=== PATIENT | female | born 1950 | race Caucasian/White ===

== ENCOUNTER 2018-02-06 11:10 | Day surgery (SDC) | payer OTHER ==
[2018-02-06 11:36] VITALS: TEMP 99.5
[2018-02-06] MEDS ORDERED: LIDOCAINE HCL 2% LUER-JET ONE (11:40)
[2018-02-06] MEDS ORDERED: VERSED ONE (11:40)
[2018-02-06] MEDS ORDERED: DIPRIVAN 20 ML VIAL IVP ONE (11:40)
[2018-02-06 12:36] VITALS: BP 138/74
--- NOTE | 2018-02-07 13:12 | OP ---
INDICATIONS FOR PROCEDURE: 68-year-old female presents for screening colonoscopy exam. She also presents for endoscopy evaluation of dysphagia to solid foods. MEDICATIONS: SEE ANESTHESIA NOTES. PROCEDURE: 1. ENDOSCOPY, ESOPHAGEAL BIOPSY, MOZAMBICAN DILATATION. 2. COLONOSCOPY. REPORT: The risks, benefits, alternatives and limitations were discussed in detail with the patient. Informed consent was obtained. After adequate sedation was achieved, the video endoscope was introduced in the posterior pharynx and esophagus under direct vision and easily advanced down to the second portion of the duodenum. I then slowly withdrew. The duodenal mucosa appeared unremarkable as did the duodenal bulb. The antrum and body were relatively unremarkable. The scope was retroflexed to look at the cardia and fundus which was unremarkable. The scope was anteflexed and withdrawn back through the esophagus. There was a 2 cm sliding hiatal hernia. In the GE junction there is a Schatzki's ring. The ring and junction were biopsied for histologic review. The esophagus appeared unremarkable otherwise. I advanced the scope back down the gastric lumen. I placed a guidewire. Over the guidewire , I easily advanced a 54 [place] dilator. The patient tolerated the procedure well with stable vital signs and pulse oximetry throughout. The patient's bed was turned. A digital rectal exam revealed good tone, no masses. The colonoscope was introduced into the rectum, advanced under direct visual guidance to the cecum. The cecum was identified by the appendical orifice and the IC valve. I then slowly withdrew the scope in a circumferential manner examining the mucosa quite carefully. I looked on the proximal and distal side of folds and flexures as best as possible. I was able to retroflex the scope in the right colon as well as left colon to increase visualization. The colonic mucosa was unremarkable other than diverticulosis. There were small and large mouth diverticulitis scattered throughout the entire colon. The scope was retroflexed to look at the anal canal which was unremarkable. The prep was good. The withdrawal time was 10 minutes and 16 seconds. The patient tolerated the procedure well with stable vital signs and pulse oximetry throughout. IMPRESSION: 1. SMALL 2 CM HIATAL HERNIA 2. DISTAL ESOPHAGEAL SCHATZKI'S RING, DILATED ABOVE 3. COLONIC COSBY DIVERTICULOSIS RECOMMENDATIONS: 1. Reflux precautions. 2. Advised her to make sure she cuts and chews her food well. 3. Will wait esophageal biopsy results to confirm benign nature of this stricture. 4. High fiber diet. 5. Consider colon screening examination again in 10 years. CC: DR. ANA JARAMILLO
== END 2018-02-06 13:15 | disposition home or self-care (01) ==
LOC: SURG 11:10
PROVIDERS: ATTEND Internal Medicine Gastroenterology
DX: R13.10 Dysphagia, unspecified (principal); Z12.11 Encounter for screening for malignant neoplasm of colon; K22.2 Esophageal obstruction; K44.9 Diaphragmatic hernia without obstruction or gangrene
CPT/HCPCS: 00813; 43239; 43248; G0121

== ENCOUNTER 2022-10-05 11:17 | Observation (INO) ==
[2022-10-05 11:28] VITALS: BMI 25.9
[2022-10-05] MEDS ORDERED: ASPIRIN CHEWABLE PO STA (11:39)
[2022-10-05] MEDS ORDERED: NITRO-BID TD ONE (11:39)
[2022-10-05 11:49] LABS: BASOPHILS % (AUTO) 0.4 % (0.0-3.0); EOSINOPHILS # (AUTO) 0.1 K/ul (0.0-0.7); HEMATOCRIT 36.6 % (37.0-47.0); HEMOGLOBIN 12.4 g/dl (12.0-16.0); IMMATURE GRANULOCYTE % (AUTO) 0.2 % (0.0-5.0); LYMPHOCYTES # (AUTO) 2.2 K/uL (0.60-3.4); LYMPHOCYTES % (AUTO) 39.6 (10.0-50.0); MEAN CORPUSCULAR HEMOGLOBIN 30.8 pg (27.0-31.0); MEAN CORPUSCULAR HGB CONC 33.9 (31.8-35.4); MONOCYTES # (AUTO) 0.5 K/uL (0.4-2.0); NEUTROPHILS # (AUTO) 2.8 K/ul (2.0-6.9); NEUTROPHILS % (AUTO) 49.8 % (42.2-75.2); PLATELET COUNT 208 10^3/uL (140-440); RDW COEFFICIENT OF VARIATION 12.6 % (11.6-14.8); RED BLOOD COUNT 4.02 10^6/ul (4.20-5.40)
[2022-10-05 12:02] LABS: ALANINE AMINOTRANSFERASE 27.2 U/L (0-35); ALBUMIN 4.59 g/dL (3.5-5.0); ALKALINE PHOSPHATASE 74.2 U/L (53-141); ASPARTATE AMINO TRANSFERASE 30.9 U/L (14-36); BILIRUBIN,TOTAL 0.62 mg/dL (0.2-1.3); BLOOD UREA NITROGEN 16.7 mg/dL (7-17); CALCIUM 9.81 mg/dL (8.4-10.2); CARBON DIOXIDE 26.5 mmol/L (22-30.0); CREATININE 0.82 mg/dL (0.60-1.30); GLUCOSE 106.6 mg/dL (74-106); LIPASE 245.9 U/L (23-300); POTASSIUM 4.25 mmol/L (3.5-5.1); SODIUM 137.6 mmol/L (134.5-145); TOTAL PROTEIN 7.41 g/dL (6.3-8.2)
--- NOTE | 2022-10-05 12:02 | DI ---
EXAM: SINGLE VIEW OF THE CHEST HISTORY: Chest pain. COMPARISON: None FINDINGS: Cardiomediastinal silhouette is unchanged. There is no pneumothorax or effusion. There is no consolidation, nodule or mass. The osseous structures are unremarkable. IMPRESSION: No acute cardiopulmonary process
[2022-10-05 12:21] LABS: TROPONIN I < 0.012 ng/ml (0.0000-0.120)
--- NOTE | 2022-10-05 13:36 | ED.PDOC ---
General ED Provider: Dr. NISA FINLEY MD Chief Complaint: Chest Pain Stated Complaint: chest pressure Time Seen by Provider: 10/05/22 11:58 Mode of Arrival: Walk-In Information Source: Patient Exam Limitations: No limitations Primary Care Provider: NUVIA BUTLER MD Referred to ED by: PCP and Clinic Seen Within Last 72 Hours for Same Complaint By: Clinic and PCP Nursing and Triage Documentation Reviewed and Agree: Yes Does patient meet sepsis criteria?: No System Inflammatory Response Syndrome: Not Applicable Sepsis Protocol: For patient's 13 years and over: Temp is 96.8 and below OR 101 and greater Pulse >90 BPM Resp >20/minute Acutely Altered Mental Status Are patient's symptoms suggestive of a new infection, such as: -Pneumonia -Skin, Soft Tissue -Endocarditis -UTI -Bone, Joint Infection -Implantable Device -Acute Abdominal Infection -Wound Infection -Meningitis -Blood Stream Catheter Infection -Unknown Cardiovascular Complaint Exam Chest Pain Complaint/Exam Onset: Gradual Duration: two weeks (continuously) Symptoms Are: Still present Timing: Constant Initial Severity: Mild Current Severity: Mild Location: Reports Midsternal Pain Radiates: Reports None Character: Reports Pressure Aggravating: Reports None Alleviating: Reports None Associated Signs and Symptoms: Reports Diaphoresis; Denies Nausea, Vomiting, Fever, Palpitations, Cough, Hemoptysis, Back pain, Abdominal pain, Dizziness, Short of air, Calf pain or Calf swelling Related Surgical History: Reports PTCA/Stent History of Healthcare-Acquired Pneumonia: Reports No AMI/ACS Risk Factors: Reports Hypertension TAD Risk Factors: Reports Hypertension Pulmonary Embolism Risk Factors: Reports None Prior Care for this Complaint: No Recent Stress Test: No Recent Echo/LV Function: No JVD Present: No Subcutaneous Emphysema Present: No Diminshed Breath Sounds: No Reproducible Chest Wall Pain: No Bilateral Pulses Present: Yes Unequal Pulses Noted: No If Risk Factors for AMI/ACS Consider: EKG, Cardiac Enzymes and Aspirin Technology Lab Teacher Consulted: No Differential Diagnoses: ACS, Unstable Angina, Chest Wall Pain and GI Diseasae Quality Indicator For Non-Traumatic Chest Pain/Syncope: EKG Performed Quality Indicators For Pneumonia/CAP: SpO2 assessed, Vital signs and Mental status assessed Antibiotics Delayed Due To: Diagnostic uncertainty and Further testing required Review of Systems Review Of Systems Constitutional: Reports Diaphoresis and Weakness; Denies Chills, Fever or Malaise Eyes: Reports No symptoms Ears, Nose, Mouth, Throat: Reports No symptoms Respiratory: Reports No symptoms Cardiac: Reports Chest pain; Denies Irregular heart rate, Lightheadedness, Palpitations or Syncope GI: Reports No symptoms : Reports No symptoms Musculoskeletal: Reports No symptoms Skin: Reports No symptoms Neurological: Reports No symptoms Endocrine: Reports No symptoms Hematologic/Lymphatic: Reports No symptoms All Other Systems: Reviewed and Negative [facility] Medical History (Updated 10/05/22 @ 15:10 by NISA FINLEY MD) Acute arthritis M19.90 - Unspecified osteoarthritis, unspecified site (ICD-10) Hypercholesteremia E78.00 - Pure hypercholesterolemia, unspecified (ICD-10) Thyroid dysfunction E07.9 - Disorder of thyroid, unspecified (ICD-10) Family History Mother Diabetes Hyperlipidemia Hypertension FATHER Drug abuse Alcoholism Hypercholesteremia Hyperlipidemia Cerebrovascular accident Cancer Hypertension SISTER Hypercholesteremia Hyperlipidemia Thyroid disorder BROTHER Drug abuse Alcoholism Hypercholesteremia Hyperlipidemia Cerebrovascular accident Hypertension Grandfather/Grandmother Drug abuse Alcoholism Social History (Updated 10/05/22 @ 10:47 by NORM MORENO) Smoking and tobacco status: Never smoker Alcohol intake: never Substance use type: does not use Special wale needs: No Agree to transfusion: Yes Adopted: No Caregiver/support person: No Foster care: No Household members: none Housing: house Lives independently: Yes Daycare: no daycare Number of children: 1 service: No detention: No History of recent travel: No Do you think of yourself as: straight/heterosexual Current gender identity: female Seatbelt use: always Drives intoxicated or rides with intoxicated rolloff driver: No Water heater temperature set < 120 degrees: Yes Working smoke detector in home: Yes Fire extinguisher in home: Yes Carbon monoxide detector in home: Yes Surgical History (Updated 11/25/19 @ 08:50 by [email or web address]) Status post appendectomy Z90.49 - Acquired absence of other specified parts of digestive tract (ICD- 10) Female Reproductive History Menstrual Hx Hysterectomy: No Hx Tubal Ligation: No Physical Exam Physical Exam Appearance: Reports Well-appearing, No pain distress and Well-nourished Ill-appearing: None Pain Distress: None Eyes: Reports TORO, EOMI and Conjunctiva clear ENT: Reports Oropharynx normal Neck: Supple Respiratory: Reports Airway patent, Breath sounds clear, Breath sounds equal and Respirations nonlabored Cardiovascular: Reports RRR, Pulses normal and No murmur GI/: Reports Soft, Nontender and Bowel sounds normal Musculoskeletal: Reports Normal strength and No edema Skin: Reports Warm, Dry and Normal color Neurological: Reports Sensation intact, Motor intact, Alert and Oriented Psychiatric: Reports Affect appropriate Interpretation EKG Interpretation EKG Interpretation By: ED Physician Time of EKG #1: 11:44 Rate: Normal Rhythm: Sinus Ectopy: None [place]: NL ST Segment: Normal EKG Comparison: No significant changes Radiology Interpretation Radiology Interpretation By: Radiologist Radiology Results: Negative Exam Interpreted: CXR Physician Notification Case Discussed Physician Notified: called Dr. Heard - no return call Time of Notification: 13:00 Physician Notified: Dr. Butler Time of Notification: 14:30 Comments: Dr. Butler is willing to admit for observation and perform a nuclear stress test and echo on Monday. He would first like that we try to call cardiology in [place] one more time first. Endorsed To/Discussed With: Dr. Dominguez (cardiology in [place]) Time of Discussion: 14:50 Reviewed With: Dr. Dominguez thinks is reasonable to perform a stress test Monday by Dr. Butler Critical Care Note Critical Care Note Total Critical Care Time (mins): 0 Course Course 10/05/22 11:43 10/05/22 11:43 Orders, Labs, Meds: Lab Review 10/05/22 11:43 WBC 5.60 RBC 4.02 L Hgb 12.4 Hct 36.6 L MCV 91.0 MCH 30.8 MCHC 33.9 RDW Coeff of Byron 12.6 Plt Count 208 Immature Gran % (Auto) 0.2 Neut % (Auto) 49.8 Lymph % (Auto) 39.6 Hettinger % (Auto) 8.0 Eos % (Auto) 2.0 Baso % (Auto) 0.4 Neut # (Auto) 2.8 Lymph # (Auto) 2.2 Hettinger # (Auto) 0.5 Eos # (Auto) 0.1 Baso # (Auto) 0.0 Immature Gran # (Auto) 0.0 Sodium 137.6 Potassium 4.25 Chloride 106.0 Carbon Dioxide 26.5 Anion Gap 9.35 BUN 16.7 Creatinine 0.82 Estimated GFR (MDRD) 68.00 BUN/Creatinine Ratio 20.36 Glucose 106.6 H Calcium 9.81 Total Bilirubin 0.62 AST 30.9 ALT 27.2 Alkaline Phosphatase 74.2 Troponin I < 0.012 Total Protein 7.41 Albumin 4.59 Globulin 2.82 Albumin/Globulin Ratio 1.62 Lipase 245.9 Orders Category Date Time Status EKG-(ED ONLY) Stat CARDIO 10/05/22 11:39 Completed PULSE OX [CONTINUOUS PULSE OX (NURSING)] PULSEOX CARE 10/05/22 11:39 Active Environmental Research Scientist [ED COAT CUTTER APPLIED] .ONCE EMERGENCY 10/05/22 11:39 Active CBC W/ AUTO DIFF Stat LAB 10/05/22 11:43 Completed CMP [COMPREHENSIVE METABOLIC PANEL] Stat LAB 10/05/22 11:43 Completed LIPASE Stat LAB 10/05/22 11:43 Completed TROPONIN I Stat LAB 10/05/22 11:43 Completed Aspirin [Aspirin Chewable] Meds 10/05/22 11:39 Discontinued 324 mg PO ONCE STA Nitroglycerin [Nitro-Bid] Meds 10/05/22 11:39 Discontinued 1 inch TD ONCE ONE CXR [CHEST, 1V AP ONLY] Stat RADS 10/05/22 11:39 Completed Medications Discontinued Medications Generic Name Dose Route Start Last Admin Trade Name Freq PRN Reason Stop Dose Admin Aspirin 324 mg 10/05/22 11:39 10/05/22 12:10 Aspirin 81 Mg Tab.Chew PO 10/05/22 11:40 324 mg ONCE STA Administration Nitroglycerin 1 inch 10/05/22 11:39 10/05/22 12:11 Nitroglycerin 1 Gm Oint TD 10/05/22 11:40 1 inch ONCE ONE Administration Vital Signs: Temp Pulse Resp BP Pulse Ox 10/05/22 11:20 98.1 F 67 20 145/90 H 97 AMI Core Fibrinolytic Reason for not ordering Fibrinolytic: not indicated CLEM Risk Score Age >/= 65: Yes >/= 3 CAD Risk Factors: Yes Known CAD (Stenosis >/= 50%): Yes ASA Use in Past 7 Days: No Severe Angina (>/= 2 episodes in 24 hours): No EKG ST Changes >/= 0.5mm: No Postive Cardiac Marker: No CLEM Total Score: 3 CLEM Risk Score: Risk Score Odds of by 30D 0 0.1 (0.1-0.2) 1 0.3 (0.2-0.3) 2 0.4 (0.3-0.5) 3 0.7 (0.6-0.9) 4 1.2 (1.0-1.5) 5 2.2 (1.9-2.6) 6 3.0 (2.5-3.6) 7 4.8 (3.8-6.1) Discharge Plan Discharge Patient Disposition: PLACED OBSERVATION Discharge Problem: Chest pain Prescriptions: No Action estradiol 0.5 MG tablet 0.5 mg PO DAILY Rx Instructions: 1 TABLET DAILY levothyroxine 50 MCG tablet 25 mcg PO DAILY Rx Instructions: 1 TABLET DAILY DIRECTED finasteride 1 MG tablet 1 mg PO DAILY Rx Instructions: 1 TABLET DAILY atorvastatin 40 mg Tablet 40 mg PO BEDTIME metoprolol succinate 50 mg Tablet Extended Release 24 Hr 50 mg PO DAILY aspirin 81 mg Tablet,Delayed Release (Dr/Ec) 81 mg PO DAILY lisinopril 2.5 mg Tablet 2.5 mg PO DAILY ergocalciferol (vitamin D2) [Vitamin D2] 10 mcg (400 unit) Tablet 10 mcg PO DAILY Did you review [place] HEARING THERAPY TEACHER for ALL controlled substances?: Not Applicable ED Provider: NISA FINLEY Condition: Stable Physician Progress Note: 72 y.o. wf with h/o HTN, HLD, hypothyroidism and CAD (s/p PCI with two stents placed in [place] in November 2020). The pt. c/o a localized non specific chest pressure that has been continuous for the past two weeks. There are no exacerbating nor alleviating factors and no other concerning signs or symptoms. vitals are stable. I called her PCP, Dr. Butler who said she could receive an echo and nuclear stre ss test, but not until Monday (two days from now). I will contact Dr. Heard (the pts. network applications specialist in [place]) and ask if he believes she needs anything sooner than that or any other advice. We called back to the transfer line at [facility] and spoke with the application counselor network applications specialist, Dr. Dominguez, who agrees with Dr. Butler's plan to stress test and echo on Monday. I called back and spoke with Dr. Butler who will admit the pt. for observation. the pt. said she is willing to stay.
[2022-10-05] MEDS ORDERED: NITROSTAT SL PRN (16:51)
[2022-10-05] MEDS ORDERED: ATROPINE SULFATE PFS IVP PRN (16:51)
[2022-10-05 17:17] LABS: CREATINE KINASE 177.9 U/L (30-135)
[2022-10-05 17:30] LABS: TROPONIN I < 0.012 ng/ml (0.0000-0.120)
[2022-10-05 17:32] LABS: CREATINE KINASE MB 0.585 ng/ml (0.0-2.38)
[2022-10-05] MEDS ORDERED: PROTONIX PO ONE (20:03)
[2022-10-05] MEDS ORDERED: ZESTRIL PO SCH (21:00)
[2022-10-05] MEDS ORDERED: LIPITOR PO SCH (21:00)
[2022-10-06 01:37] LABS: CREATINE KINASE 145.1 U/L (30-135)
[2022-10-06 02:07] LABS: TROPONIN I < 0.012 ng/ml (0.0000-0.120)
[2022-10-06 05:03] LABS: BASOPHILS % (AUTO) 0.3 % (0.0-3.0); EOSINOPHILS # (AUTO) 0.1 K/ul (0.0-0.7); EOSINOPHILS % (AUTO) 2.2 % (0.0-7.0); HEMOGLOBIN 11.8 g/dl (12.0-16.0); IMMATURE GRANULOCYTE % (AUTO) 0.2 % (0.0-5.0); LYMPHOCYTES # (AUTO) 2.2 K/uL (0.60-3.4); MEAN CORPUSCULAR HEMOGLOBIN 30.3 pg (27.0-31.0); MEAN CORPUSCULAR HGB CONC 32.8 (31.8-35.4); MEAN CORPUSCULAR VOLUME 92.5 fl (81.0-99.0); MONOCYTES # (AUTO) 0.5 K/uL (0.4-2.0); MONOCYTES % (AUTO) 8.2 (0-10); NEUTROPHILS # (AUTO) 3.1 K/ul (2.0-6.9); NEUTROPHILS % (AUTO) 52.1 % (42.2-75.2); PLATELET COUNT 212 10^3/uL (140-440); RDW COEFFICIENT OF VARIATION 12.8 % (11.6-14.8); RED BLOOD COUNT 3.89 10^6/ul (4.20-5.40); WHITE BLOOD COUNT 5.87 K/ul (4.6-10.2)
[2022-10-06 05:13] LABS: ALANINE AMINOTRANSFERASE 24.1 U/L (0-35); ALBUMIN 4.09 g/dL (3.5-5.0); ALKALINE PHOSPHATASE 72.7 U/L (53-141); ASPARTATE AMINO TRANSFERASE 28.5 U/L (14-36); BILIRUBIN,TOTAL 0.48 mg/dL (0.2-1.3); BLOOD UREA NITROGEN 16.1 mg/dL (7-17); CALCIUM 9.38 mg/dL (8.4-10.2); CARBON DIOXIDE 28.2 mmol/L (22-30.0); CHLORIDE 107.5 mmol/L (98-107); CREATININE 0.8 mg/dL (0.60-1.30); GLUCOSE 124.3 mg/dL (74-106); POTASSIUM 4.85 mmol/L (3.5-5.1); SODIUM 138.2 mmol/L (134.5-145); TOTAL PROTEIN 6.69 g/dL (6.3-8.2)
[2022-10-06] MEDS ORDERED: SYNTHROID PO SCH ×2 (06:00→06:30)
[2022-10-06] MEDS ORDERED: PROTONIX PO SCH (06:30)
[2022-10-06] MEDS ORDERED: VITAMIN D PO SCH (09:00)
[2022-10-06] MEDS ORDERED: ASPIRIN EC PO SCH (09:00)
[2022-10-06] MEDS ORDERED: TOPROL XL PO SCH (09:00)
[2022-10-06] MEDS ORDERED: ERGOCALCIFEROL PO SCH (09:00)
[2022-10-06 10:24] VITALS: BP 113/67; PULSE 74; RESP 16; TEMP 96.3
[2022-10-06] MEDS ORDERED: NITROSTAT SL ONE (12:25)
[2022-10-06] MEDS ORDERED: NITROSTAT SL PRN (12:34)
--- NOTE | 2022-10-06 13:31 | HP ---
DATE OF SERVICE: 10/05/22 REASON FOR HOSPITALIZATION: Soreness and chest heaviness HISTORY OF PRESENT ILLNESS: 72 year old female walked into the office, first she had called, for chest soreness and chest pain. On further questioning she says that for the last ten days she has been working around the house and constant soreness for ten days. Between the fatigue she has been hot and sweating off and on. At times she sweats resting in the house. She also feels fatigue. She wanted to have things checked out. PAST MEDICAL/SURGICAL HISTORY: Hypertension [place] with stent - November [address] Heard Anteroseptal [place] Sleep edema Eye lid surgery Hypothyroidism Right knee surgery - [id number] Hyperglycemia with A1C 6.2 B12 deficiency REVIEW OF SYSTEMS: CONSTITUTIONAL: Fatigue. HEENT: Eyes: No visual changes. No eye pain. No eye discharge. ENT: No runny nose. No epistaxis. No sinus pain. No sore throat. No odynophagia. No ear pain. No congestion. RESPIRATORY: No obvious shortness of breath. CARDIOVASCULAR: Chest soreness which is constant for the last ten days. In between she may get a little heaviness at times unrelated to exertion. No PND, no orthopnea. GASTROINTESTINAL: No reflux symptoms. No nausea or vomiting. GENITOURINARY: No urgency. No frequency. No dysuria. No hematuria. No obstructive symptoms. No discharge. No pain. No significant abnormal bleeding. MUSCULOSKELETAL: Weakness. NEUROLOGICAL: No headache. No neck pain. No syncope. No seizures. No dizziness. PSYCHIATRIC: Not anxious. No depression. No suicidal thoughts. No homicidal thoughts. SKIN: No rash. No lesions. No wounds. ENDOCRINE: No weight loss. No weight gain. HEMATOLOGIC/LYMPHATIC: No anemia. No purpura. No petechiae. No prolonged or excessive bleeding. No palpable lymph nodes. PERSONAL/FAMILY/SOCIAL HISTORY: Patient is nonsmoker and no alcohol abuse. She is and lives by herself. She does activity of daily living. MEDICATIONS: Aspirin Finasteride Levothyroxine Lisinopril Metoprolol ALLERGIES: LATEX PHYSICAL EXAMINATION: GENERAL: The patient is oriented to time, place and person. VITAL SIGNS: Temperature 98.6, pulse 70, respiratory rate 15, blood pressure 122/80, 5'10", weighs 180 lbs, BMI 26. HEENT: Head normocephalic, atraumatic. Eyes: Extraocular muscles are intact. Pupils are equal, round and reactive to light and accommodation. Ears: No lesions. Nose appeared normal. Throat: No exudate or erythema. NECK: Supple. No JVD, no carotid bruit. No lymphadenopathy or thyromegaly. LUNGS: Clear to auscultation. Percussion note normal. Chest symmetrical. HEART: S1, S2, no S3. No murmur. No cyanosis or clubbing. No ascites. Pulses: Dorsalis pedis and posterior tibial pulses +1 to +2 bilaterally. ABDOMEN: Soft. Nontender. Bowel sounds active. No CVA tenderness. No mass felt. EXTREMITIES: No edema. Full range of motion of all extremities, equal. NEUROLOGIC: No focal deficit. Cranial nerves II through XII are grossly intact. No headache, no double vision or headache. SKIN: Not dry. Intact. Turgor - normal. LYMPHATIC: No palpable lymph nodes/no lymphedema. MUSCULOSKELETAL: Normal joints with no swelling. Muscle tone is normal. ASSESSMENT: 1. CHEST PAIN, NONCARDIAC, BUT COULD BE A COMPLIMENT OF CORONARY INSUFFICIENCY, SEEMS TO BE NEW ONSET. FATIGUE PRESENT. 2. HISTORY OF [place] WITH TWO STENTS, NOVEMBER [address] HEARD, ANTEROSEPTAL [place]. 3. DYSLIPIDEMIA 4. HYPERTENSION 5. HYPOTHYROIDISM 6. RIGHT KNEE SURGERY, FEBRUARY 2022 7. HISTORY OF HYPERGLYCEMIA WITH A1C OF 6.2 IN OCTOBER 2021 8. GENERALIZED OSTEOARTHRITIS Discussed with ER attending, Dr. Don, he indicated he is going to call Dr. Heard and see what he wants to do with the patient. She was seen by Dr. Heard a month ago and work up was negative. Dr. Don waited for an hour and a-half for Dr. Heard to call back and he didn't call. He called the doctor riveting machine operator tape control, Dr. Darden, and indicated that she could be in this hospital and Dr. Butler would be willing to do a chest echo by Monday because that's the earliest date available. After discussing the case, Dr. Darden felt that should be the plan and Dr. Don also thought that it is more like noncardiac pain but considering patient's history it needs to be observed and admitted. Agreed to admit the patient. PLAN: 1. Patient is going to be admitted regular with routine telemetry orders. 2. We are going to continue the same medications. 3. Protonix will be given and patient will be continued on Metoprolol. I called the hospital around 8:30 and no symptoms of coronary insufficiency, she had no chest soreness or chest pain. I am going to do an echo in the morning and a stress echo maybe on Monday. Patient's cardiac markers are negative. Patient's EKG done in the office is exactly the same which was done on January 04, 2021. Condition: Stable TIME SPENT: More than 75 minutes. CLINT
--- NOTE | 2022-10-08 10:15 | DS ---
DATE OF SERVICE: 10/06/22 FINAL DIAGNOSIS: 1. DISCOMFORT SORENESS WITH HEAVINESS 2. HISTORY OF TWO STENTS, NOVEMBER 2019, ANTEROSEPTAL WALL - DR. BRANDT 3. DYSLIPIDEMIA 4. HYPERTENSION 5. HYPOTHYROIDISM 6. RIGHT KNEE REPLACEMENT - DR. MORRIS, FEBRUARY 2022 7. HISTORY OF HYPERGLYCEMIA WITH A1C 6.2, OCTOBER 2021 8. B12 DEFICIENCY 9. INSOMNIA 10.GENERALIZED OSTEOARTHRITIS DISCHARGE INSTRUCTIONS: Patient is advised to not get involved in heavy exertional activity. Followup appointment on Monday at 9:30 a.m., five days from now. Patient is to have stress echo maybe tomorrow at [facility]. MEDICATIONS AT DISCHARGE: Advised to continue same medications as before - Aspirin Atorvastatin Finasteride Levothyroxine Lisinopril Metoprolol Nitroglycerine sublingual PRN HOSPITAL COURSE: 72 year old white female was seen in the office, she practically walked in complaining of having chest soreness which is more or less constant. Patient had been working outside for ten days at her house. Patient also has intermittent chest heaviness related to exertion. Patient has been somewhat fatigued lately. Patient was sent to the emergency room for further work up. She did not have any elevation of cardiac markers. Her EKG has not changed with evidence of anteroseptal [place], old. Patient was monitored for 24 hours and she did not have any abnormal cardiac markers. Her telemetry did not show any new STT wave change. Patient had an echocardiogram on the day of discharge, today, with ejection fraction of 40%; the same as what it was three years ago. Patient does not have any chest heaviness and no symptoms of congestive heart failure. She still has some soreness which is more or less constant of the musculoskeletal structure of the abdominal wall. Patient was discharged home in stable condition and instructed that if chest pain recurs to go to the nearest emergency room; otherwise, I will see her tomorrow for stress echo. Patient was advised to continue the same medications as before. Patient's EKG remained unchanged x3. Condition at time of discharge: Stable. TIME SPENT: 70 minutes MTDD
--- NOTE | 2022-10-08 10:17 | PN ---
10/05/22 LEVEL 5 10/06/22 DISCHARGE, EXTENSIVE MTDD
--- NOTE | 2022-10-11 10:41 | ECHO2D ---
Date of Exam: 10/06/2022 Ordering Physician: DR. NUVIA MORRIS Room #: 112 Reason for Echo: CHEST PAIN, DM, H/O ANTEROSEPTAL WALL [place] M-Mode Normal Adult Results LV Dimensions Normal Adult Results AoV Opening excursions >1.6 >1.6 LVEDD-base- 3.5-5.8 5.4 Ao root dimensions 2.0-3.7 3.6 LVESD-base- 3.1-4.6 L. Atrium dimensions 1.9-3.8 3.7 Post. Wall thickness 0.8-1.1 1.1 IV septum (thickness) 0.7-1.2 1.1 Post. Wall excursion 0.72-1.3 NORMAL Septal motion 0.4 Systolic motion R. Ventricular cavity 1.5-2.0 NORMAL LVEF 60% 40% Paradoxical septal wall motion NORMAL 2-D : 2-D M Mode Echocardiogram was performed using apical four chamber and left parasternal long and short axis views. Mitral, tricuspid and aortic valves appear to be normal. Contractility of the left ventricle seems to be normal, so is the cavity size. Left atrial cavity size and aortic root appear to be normal. There is no pericardial effusion. There is no thrombus noted in the left ventricle or left atrial cavity. HYPOKINETIC APICAL SEPTAL WALL M-MODE: MV: NORMAL AV: NORMAL TV: NORMAL PV: CHAMBER SIZE: NORMAL WALL MOTION: HYPOKINETIC APICAL SEPTAL WALL PERICARDIUM: NORMAL INTERPRETATION: 1. HYPOKINETIC APICAL SEPTAL WALL EJECTION FRACTION 40% 2. VALVES--NORMAL 3. LEFT VENTRICLE CAVITY SIZE NORMAL MTDD
== END 2022-10-06 12:50 | disposition home or self-care (01) ==
LOC: ED 11:17 → MEDSURG B 11:17 → OBSVTOIN 15:23 → INTOOBSV 15:23 → MEDSURG B 16:04
PROVIDERS: ADMIT Internal Medicine; ATTEND Internal Medicine